=== PATIENT | female | born 1965 | race Caucasian/White ===

== ENCOUNTER 2017-12-25 15:10 | Emergency (ER) | payer MEDICARE ==
[~2017-12-25] VITALS: Ht 188 cm; Wt 193.2 kg
[2017-12-25 15:15] VITALS: TEMP 96.9
[2017-12-25] MEDS ORDERED: ZOLOFT 100MG100 MG PO (15:24)
[2017-12-25] MEDS ORDERED: PRINIVIL20 MG PO (15:24)
[2017-12-25] MEDS ORDERED: LYRICA 50MG CAP50 MG PO (15:25)
[2017-12-25] MEDS ORDERED: DEXILANT60 MG PO (15:25)
[2017-12-25 16:00] LABS: BASO % 0.3 % (0.0-2.0); EOS # 0.1 (0.0-0.7); EOS % 1.2 % (0-4.0); GRAN # 4.9 (1.4-6.5); GRAN % 75.9 % (42.2-75.2); HEMATOCRIT 37.6 % (37.0-47.0); HEMOGLOBIN 11.8 g/dl (12.5-16.0); LYMPH # 0.8 (1.2-3.4); LYMPH % 12.3 % (20.0-51.0); MEAN CELL VOLUME 89 fl (80.0-100.0); MEAN CORPUSCULAR HEMOGLOBIN 28 pg (27.0-31.0); MEAN CORPUSCULAR HGB CONC 31 g/dl (33.0-37.0); MEAN PLATELET VOLUME 11.3 fl (7.4-10.4); MONO # 0.6 (0.1-0.6); MONO % 9.8 % (1.7-9.3); PLATELET COUNT 168 K/mm3 (130-400); RED BLOOD COUNT 4.23 M/mm3 (4.10-5.30); REDCELL DISTRIBUTION WIDTH-CV 15.3 % (11.5-14.5)
[2017-12-25 16:13] LABS: ALANINE AMINOTRANSFERASE 14 U/L (9-52); ALBUMIN 3.6 gm/dL (3.5-5.0); ALKALINE PHOSPHATASE 95 U/L (50-136); ANION GAP 12 mmol/L (7-16); AST,SGOT 20 U/L (15-37); BILIRUBIN,TOTAL 0.9 mg/dL (0.0-1.0); BLOOD UREA NITROGEN 10 mg/dL (7-17); CALCIUM 8.7 mg/dL (8.4-10.2); CARBON DIOXIDE 31 mmol/L (22-30); CHLORIDE 100 mmol/L (98-107); CREATININE, serum 0.92 mg/dL (0.52-1.25); GLUCOSE 143 mg/dL (74-106); SODIUM 143 mmol/L (137-145); TOTAL PROTEIN 7.6 gm/dL (6.4-8.2)
[2017-12-25 16:15] LABS: POTASSIUM 2.8 mmol/L (3.4-5.0)
[2017-12-25 17:11] LABS: TROPONIN-I < 0.012 ng/mL (0.000-0.034)
[2017-12-25 18:03] VITALS: BP 104/52; PULSE 54
== END 2017-12-25 18:04 | disposition home or self-care (01) ==
LOC: COL.ER 15:10
PROVIDERS: Family Medicine
DX: R55 Syncope and collapse (principal); I10 Essential (primary) hypertension; E86.0 Dehydration
CPT/HCPCS: J7030; J7120